=== PATIENT | female | born 1950 | race Caucasian/White ===

== ENCOUNTER 2016-08-10 05:28 | Day surgery (SDC) | payer OTHER ==
--- NOTE | ~2016-08-10 | EGD ---
EGD REPORT [facility] [address] [address] NAME: FROY HUNT : [birth year] STATUS : REG [facility] PAT#: [id number] AGE: 66 ADM/REG DATE : 08/10/16 MR#: [id number] REPORT SERV DATE: 08/10/16 DICTATED BY: TRIPP NARVAEZ DATE: 08/10/16 REPORT STATUS : Draft TRANSCRIBED BY: [facility] DATE: 08/10/16 [facility] Center Patient Name: Froy Hunt Date of : 1950 Attending MD: TRIPP NARVAEZ, Procedure Date No Time: 08/10/2016 Procedure: Colonoscopy Indications: Surveillance: History of piecemeal removal of adenoma on last exam 6 months ago Referring MD: RUFINA GALVAN COLLEEN M. SCHMITT, MD Medicines: Monitored Anesthesia Care Complications: No immediate complications. Estimated blood loss: None. Procedure: Pre-Anesthesia Assessment: - ASA Grade Assessment: III - A patient with severe systemic disease. After I obtained informed consent, the scope was passed under direct vision. Throughout the procedure, the patient's blood pressure, pulse, and oxygen saturations were monitored continuously. The CF [id number] was introduced through the anus and advanced to the cecum, identified by appendiceal orifice and ileocecal valve. The ileocecal valve, appendiceal orifice and rectum were photographed. Findings: The perianal and digital rectal examinations were normal. Multiple small-mouthed diverticula were found in the sigmoid colon. A single medium-sized scar was found in the ascending colon. Biopsies were taken with a cold forceps for histology. Verification of patient identification for the specimen was done. Estimated blood loss was minimal. The exam was otherwise without abnormality. Impression: - Diverticulosis in the sigmoid colon. - Scar in the ascending colon. Biopsied. - The examination was otherwise normal. Recommendation: - Patient has a contact number available for emergencies. The signs and symptoms of potential delayed complications were discussed with the patient. Return to normal activities tomorrow. Written discharge instructions were provided to the patient. - Return to previous diet. - Continue present medications. - Await pathology results. EGD REPORT [address] [address] NAME: FROY HUNT : [birth year] STATUS : REG [facility] PAT#: [id number] AGE: 66 ADM/REG DATE : 08/10/16 MR#: [id number] REPORT SERV DATE: 08/10/16 DICTATED BY: TRIPP NARVAEZ DATE: 08/10/16 REPORT STATUS : Draft TRANSCRIBED BY: [employer] DATE: 08/10/16 - Repeat colonoscopy in 1 year for surveillance. Procedure Code(s): --- Professional --- 85422, Colonoscopy, flexible, proximal to splenic flexure; with biopsy, single or multiple Diagnosis Code(s): --- Professional --- K57.30, Diverticulosis of large intestine without perforation or abscess without bleeding K63.89, Other specified diseases of intestine Z86.010, Personal history of colonic polyps CPT copyright 2013 [employer]. All rights reserved. The codes documented in this report are preliminary and upon x ray consultant review may be revised to meet current compliance requirements. TRIPP NARVAEZ, 08/10/2016 7:34 AM Number of Addenda: 0 Note Initiated On: 08/10/2016 6:56 AM Scope Withdrawal Time 0 hours 14 minutes 14 seconds [address] [place], [place] [id number]
[~2016-08-10 05:28] MED LIST: ADVAIR250 INH; ARIMIDEX1 PO; CLARIT10 PO; HYZAAR1 TAB PO; KOMBIGLYZE XR1 EAC1 PO; MEVACOR10 MG PO; PROTONIX PO; VENTOLIN HFA INH; VITAMIN D400 UNI1 PO
== END 2016-08-10 23:59 | disposition home or self-care (01) ==
LOC: DMU 05:28
PROVIDERS: Internal Medicine Gastroenterology
PROC: 0DBK8ZX Excision of Ascending Colon, Via Natural or Artificial Opening Endoscopic, Diagnostic (ICD-10-PCS; principal; 2016-08-10 07:00)
DX: K57.30 Diverticulosis of large intestine without perforation or abscess without bleeding (principal); K63.89 Other specified diseases of intestine; K21.9 Gastro-esophageal reflux disease without esophagitis; I10 Essential (primary) hypertension; E11.9 Type 2 diabetes mellitus without complications; E78.00 Pure hypercholesterolemia, unspecified; E04.1 Nontoxic single thyroid nodule; J45.909 Unspecified asthma, uncomplicated; G90.2 Horner's syndrome; Z86.010 Personal history of colon polyps; Z85.3 Personal history of malignant neoplasm of breast; Z92.21 Personal history of antineoplastic chemotherapy; Z92.3 Personal history of irradiation; Z90.710 Acquired absence of both cervix and uterus; Z90.12 Acquired absence of left breast and nipple; Z79.899 Other long term (current) drug therapy; Z98.890 Other specified postprocedural states
CPT/HCPCS: 82962; 88305; J2405